=== PATIENT | female | born 1965 | race Caucasian/White ===

== ENCOUNTER 2016-08-17 19:43 | Emergency (ER) | payer OTHER, BC ==
[2016-08-17 19:59] VITALS: BP 133/86; PULSE 75; RESP 16; TEMP 97.9
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
== END 2016-08-17 20:45 | disposition home or self-care (01) ==
LOC: EC 19:43
DX: Z04.1 Encounter for examination and observation following transport accident (principal); Z79.84 Long term (current) use of oral hypoglycemic drugs; Z79.899 Other long term (current) drug therapy; Z88.0 Allergy status to penicillin; Z88.8 Allergy status to other drugs, medicaments and biological substances; V87.7XXA Person injured in collision between other specified motor vehicles (traffic), initial encounter; Y92.69 Other specified industrial and construction area as the place of occurrence of the external cause; Y99.0 Civilian activity done for income or pay
CPT/HCPCS: 99283

== ENCOUNTER 2016-10-23 01:24 | Emergency (ER) | payer BC ==
[2016-10-23] MEDS ORDERED: ENALAPRILAT 1.25 MG/ML 1 ML VIAL IVP STA (01:42)
--- NOTE | 2016-10-23 01:46 | ED ---
General Adult HPI - General Chief complaint: Recheck/Abnormal Lab/Rx Stated complaint: HIGH BP Time Seen by Provider: 10/23/16 01:34 Source: patient Mode of arrival: wheelchair Limitations: no limitations - History of Present Illness Initial comments: 51-year-old woman who presents to be evaluated because her blood pressure has been high most of the day. The patient states that she had initially noticed things in the morning, starting with a feeling that she was flushed. She states that she checked her blood pressure and it was over 170. When this continued throughout the day she decided to be evaluated here. She has been feeling warm, flushed. Patient denies chest pain, headache, dyspnea, nausea vomiting, or diaphoresis. Onset/Timin -: days(s) Improves with: none Worsens with: none Associated Symptoms: denies other symptoms Treatments Prior to Arrival: none - Related Data Home Medications Medication Instructions Recorded Confirmed Chlorthalidone(Unknown) 1 tab PO DAILY 08/17/16 08/17/16 Lisinopril(Unknown) 1 tab PO HS 08/17/16 08/17/16 metFORMIN HCL [Metformin HCl] 500 mg PO BID 08/17/16 08/17/16 Allergies Allergy/AdvReac Type Severity Reaction Status Date / Time niacin Allergy Rash/Hives Verified 10/23/16 01:30 Penicillins Allergy Rash/Hives Verified 10/23/16 01:30 Review of Systems ROS Statement: Those systems with pertinent positive or pertinent negative responses have been documented in the HPI. ROS Other: All systems not noted in ROS Statement are negative. Constitutional: Denies: fever, chills Eyes: Denies: vision change Respiratory: Denies: cough, dyspnea Cardiovascular: Reports: palpitations. Denies: chest pain, orthopnea, syncope Gastrointestinal: Denies: abdominal pain, vomiting, diarrhea Genitourinary: Denies: dysuria, hematuria Skin: Denies: rash Neurological: Denies: headache, weakness, numbness Psychiatric: Reports: anxiety Past Medical History Past Medical History: No Reported History History of Any Multi-Drug Resistant Organisms: None Reported Past Surgical History: Section Past Psychological History: No Psychological Hx Reported Smoking Status: Never smoker Past Alcohol Use History: None Reported Past Drug Use History: None Reported General Exam Limitations: no limitations General appearance: alert, in no apparent distress, anxious Head exam: Present: atraumatic, normocephalic Eye exam: Present: normal appearance. Absent: scleral icterus, conjunctival injection ENT exam: Present: normal oropharynx Neck exam: Present: normal inspection Respiratory exam: Present: normal lung sounds bilaterally. Absent: respiratory distress, wheezes, rales, rhonchi, stridor Cardiovascular Exam: Present: regular rate, normal rhythm, normal heart sounds. Absent: systolic murmur, diastolic murmur, rubs, gallop GI/Abdominal exam: Present: soft. Absent: distended, tenderness, guarding, rebound Extremities exam: Present: normal inspection, normal capillary refill. Absent: pedal edema, calf tenderness Back exam: Present: normal inspection. Absent: CVA tenderness (R), CVA tenderness (L) Neurological exam: Present: alert Skin exam: Present: warm, dry, intact, normal color. Absent: rash Course Vital Signs 10/23/16 10/23/16 10/23/16 01:27 01:53 02:38 Temperature 97.6 F Pulse Rate 76 68 75 Respiratory 20 16 Rate Blood Pressure 200/115 172/96 132/82 O2 Sat by Pulse 95 97 98 Oximetry 10/23/16 02:54 Temperature Pulse Rate 75 Respiratory Rate Blood Pressure 129/80 O2 Sat by Pulse 95 Oximetry EKG Findings - EKG Results: EKG: interpreted by ABILIO SANTIAGO, sinus rhythm (Rate approximately 67 bpm), normal axis, normal QRS, normal ST/T, no acute changes - GA, Pacemaker, Normal: Normal tracing: normal tracing Medical Decision Making - Lab Data Result diagrams: 10/23/16 02:03 10/23/16 02:03 Lab Results 10/23/16 10/23/16 10/23/16 Range/Units 02:03 02:03 02:57 WBC 6.7 (3.8-10.6) k/uL RBC 4.84 (3.80-5.40) m/uL Hgb 14.5 (11.4-16.0) gm/dL Hct 41.6 (34.0-46.0) % MCV 85.9 (80.0-100.0) fL MCH 29.9 (25.0-35.0) pg MCHC 34.8 (31.0-37.0) g/dL RDW 13.1 (11.5-15.5) % Plt Count 229 (150-450) k/uL Neutrophils % 55 % Lymphocytes % 34 % Monocytes % 6 % Eosinophils % 3 % Basophils % 0 % Neutrophils # 3.7 (1.3-7.7) k/uL Lymphocytes # 2.3 (1.0-4.8) k/uL Monocytes # 0.4 (0-1.0) k/uL Eosinophils # 0.2 (0-0.7) k/uL Basophils # 0.0 (0-0.2) k/uL Sodium 136 L (137-145) mmol/L Potassium 3.8 (3.5-5.1) mmol/L Chloride 102 (98-107) mmol/L Carbon Dioxide 23 (22-30) mmol/L Anion Gap 11 mmol/L BUN 15 (7-17) mg/dL Creatinine 0.60 (0.52-1.04) mg/dL Est GFR (MDRD) Af Amer >60 (>60 ml/min/1.73 sqM) Est GFR (MDRD) Non-Af >60 (>60 ml/min/1.73 sqM) Glucose 329 H (74-99) mg/dL POC Glucose (mg/dL) 288 H (75-99) mg/dL POC Glu [employer] Merchandiser ID Jennifer Stark Calcium 9.8 (8.4-10.2) mg/dL Disposition Clinical Impression: Hypertension, Hyperglycemia Disposition: HOME SELF-CARE Condition: Good Instructions: Hypertension (ED), Diabetic Hyperglycemia (ED) Referrals: Henok Brock MD [Primary Care Provider] - 1-2 days
[2016-10-23 01:54] VITALS: RESP 16
[2016-10-23 02:22] LABS: Basophils % (A) 0 %; CH 29.7; CHCM 34.8; Eosinophils # (A) 0.2 k/uL (0-0.7); Eosinophils % (A) 3 %; HCT 41.6 % (34.0-46.0); HDW 2.65; HGB 14.5 gm/dL (11.4-16.0); Luc # (Auto) 0.16; Luc % (Auto) 2; Lymphocytes # (A) 2.3 k/uL (1.0-4.8); Lymphocytes % (A) 34 %; MCH 29.9 pg (25.0-35.0); MCHC 34.8 g/dL (31.0-37.0); MCV 85.9 fL (80.0-100.0); Monocytes # (A) 0.4 k/uL (0-1.0); Monocytes % (A) 6 %; Neutrophils # (A) 3.7 k/uL (1.3-7.7); Neutrophils % (A) 55 %; RBC 4.84 m/uL (3.80-5.40); RDW 13.1 % (11.5-15.5); WBC 6.7 k/uL (3.8-10.6); WBC (Perox) 6.53
[2016-10-23 02:28] LABS: Anion Gap 11 mmol/L; Blood Urea Nitrogen 15 mg/dL (7-17); Calcium 9.8 mg/dL (8.4-10.2); Carbon Dioxide 23 mmol/L (22-30); Chloride 102 mmol/L (98-107); Glucose 329 mg/dL (74-99); Non-African American GFR(MDRD) >60 (>60 ml/min/1.73 sqM); Potassium 3.8 mmol/L (3.5-5.1); Sodium 136 mmol/L (137-145)
[2016-10-23] MEDS ORDERED: INSULIN REGULAR 100 UNIT/ML VIAL SQ STA (02:45)
[2016-10-23 02:58] LABS: Glucose,Whole Blood 288 mg/dL (75-99)
[2016-10-23 03:34] LABS: Glucose,Whole Blood 281 mg/dL (75-99)
[2016-10-23 03:42] VITALS: BP 139/82; PULSE 69; TEMP 97.2
== END 2016-10-23 03:42 | disposition home or self-care (01) ==
LOC: EC 01:24
DX: I10 Essential (primary) hypertension (principal); E11.65 Type 2 diabetes mellitus with hyperglycemia; Z79.84 Long term (current) use of oral hypoglycemic drugs; Z79.899 Other long term (current) drug therapy
CPT/HCPCS: 36415; 80048; 84484; 85025; 93005; 96374; 99284

== ENCOUNTER → 2017-07-19 | Outpatient (CLI) | payer BC ==
--- NOTE | 2017-07-21 08:41 | MR ---
EXAMINATION TYPE: MR brain wo con DATE OF EXAM: 07/19/2017 COMPARISON: CT brain dated 08/20/2011 HISTORY: Headache, family hx of aneurysm TECHNIQUE: Multiplanar, multisequence images of the brain and brainstem is performed without IV contrast. FINDINGS: Diffusion weighted images demonstrate no evidence of a recent infarct or other diffusion ab normality. There is no extra-axial fluid collection or significant white matter signal abnormality. The ventricular system and cisternal spaces are normal in size and appearance. The brain volume is age appropriate. Midline structures demonstrate normal morphology. The craniocervical junction appears within normal limits. Post contrast images demonstrate no abnormal enhancement. The dural venous sinuses appear pa tent. Mild mucosal thickening is seen within the ethmoid sinuses. The remaining visualized sinuses ar e clear and the globes are intact. IMPRESSION: 1. No evidence of acute infarct, midline shift or mass effect. Intracranial flow voids are maintained with no gross evidence of aneurysm, however aneurysm is better assessed for with MRA. This could be performed if there is further clinical concern. 2. Minimal ethmoidal paranasal sinus disease.
== END | disposition home or self-care (01) ==
LOC: RADMRIMAIN 08:26
PROVIDERS: ATTEND Internal Medicine
DX: R51 Headache (principal); I10 Essential (primary) hypertension; Z82.49 Family history of ischemic heart disease and other diseases of the circulatory system
CPT/HCPCS: 70551

== ENCOUNTER → 2018-03-18 | Outpatient (CLI) | payer BC ==
--- NOTE | 2018-03-18 14:57 | P.SLEEP ---
History of Present Illness H&P Date: 03/18/18 This is a 52-year-old female patient is coming in for a sleep apnea evaluation. The patient was here approximately 2 years ago and she was unable to get an authorization to undergo a polysomnogram and she was lost to follow-up. In the meantime, the patient continued to snore loudly and she has been told by several family members that she would quit breathing at night and she would have prolonged apneas. The patient herself is very much tired and sleepy and she carries an Independence score of 22. The patient is going to bed around midnight and she gets out of bed at 7:30 and she thinks that she may be is taken only 2 or 3 hours of good uninterrupted sleep. She has excessive fatigue and sleepiness during the day. She wakes up with dry mouth. She has trouble with attention, and she falls asleep on and off during the day. She wakes up very tired in the morning. She was obese and she was able to lose some weight with a use of Victoza. She has fibromyalgia and rheumatoid arthritis and she is on Enbrel injections under the care of rheumatology, Dr. Acuna. No sleep paralysis. No hallucinations. No cataplexy. No restlessness and lower extremities. Occasional morning headaches have been reported by this patient. She does have a positive family history of obstructive sleep apnea. No motor vehicle accidents related to excessive sleepiness. She does not fall asleep while driving. No restlessness in the lower extremities bilaterally. Review of Systems Constitutional: Reports daytime sleepiness, Reports fatigue, Reports lethargy Eyes: denies as per HPI, denies blurred vision, denies bulging eye, denies decreased vision, denies diplopia, denies discharge, denies dry eye, denies irritation, denies itching, denies pain, denies photophobia, denies loss of peripheral vision, denies loss of vision, denies tunnel vision/blind spots Ears: deny: decreased hearing, ear discharge, earache, tinnitus Ears, nose, mouth and throat: Reports as per HPI (Loud snoring) Breasts: absent: as per HPI, change in shape, gynecomastia, masses, nipple discharge, pain, skin changes, swelling Cardiovascular: Denies chest pain, Denies shortness of breath Respiratory: Reports as per HPI Gastrointestinal: Denies abdominal pain, Denies diarrhea, Denies nausea, Denies vomiting Genitourinary: Denies dysuria, Denies hematuria Menstruation: Reports as per HPI Musculoskeletal: Reports morning stiffness, Reports muscle weakness, Reports myalgias Musculoskeletal: absent: ankle pain, ankle stiffness, ankle swelling, as per HPI , elbow pain, elbow stiffness, elbow swelling, foot pain, foot stiffness, foot swelling, hand pain, hand stiffness, hand swelling, hip pain, hip stiffness, hip swelling, knee pain, knee stiffness, knee swelling, shoulder pain, shoulder stiffness, shoulder swelling, wrist pain, wrist stiffness, wrist swelling Integumentary: Denies pruritus, Denies rash Neurological: Reports weakness Psychiatric: Reports sleep disturbances Endocrine: Reports as per HPI, Reports fatigue Hematologic/Lymphatic: Reports as per HPI Past Medical History Past Medical History: No Reported History Additional Past Medical History / Comment(s): Fibromyalgia, rheumatoid arthritis , hypertension, diabetes mellitus, hyperlipidemia History of Any Multi-Drug Resistant Organisms: None Reported Past Surgical History: Section Past Psychological History: No Psychological Hx Reported Smoking Status: Never smoker Past Alcohol Use History: None Reported Past Drug Use History: None Reported Medications and Allergies Home Medications and Allergies Comment(s): The patient also is on metformin 500 mg by mouth twice a day, Lipitor 20 mg by mouth daily, Lasix 20 mg by mouth daily, Victoza injection a day, vitamin D and Enbrel injections every week, and chlorthalidone. Home Medications Medication Instructions Recorded Confirmed Type Chlorthalidone(Unknown) 1 tab PO DAILY 08/17/16 08/17/16 History Lisinopril(Unknown) 1 tab PO HS 08/17/16 08/17/16 History metFORMIN HCL [Metformin HCl] 500 mg PO BID 08/17/16 08/17/16 History Allergies Allergy/AdvReac Type Severity Reaction Status Date / Time niacin Allergy Rash/Hives Verified 10/23/16 01:30 Penicillins Allergy Rash/Hives Verified 10/23/16 01:30 Physical Exam The patient appeared well nourished and normally developed. Vital signs as documented. Head exam is unremarkable. No scleral icterus or corneal arcus noted. Neck is without jugular venous distension, thyromegaly, or carotid bruits. The patient has a Mallampati class IV Carotid upstrokes are brisk bilaterally. Lungs are clear to auscultation and percussion. Cardiac exam reveals the PMI to be normally sized and situated. Rhythm is regular. First and second heart sounds normal. No murmurs, rubs or gallops. Abdominal exam reveals normal bowel sounds, no masses, no organomegaly and no aortic enlargement. Extremities are nonedematous and both femoral and pedal pulses are normal.Examination of the skin revealed no evidence of significant rashes, suspicious appearing nevi or other concerning lesions. Neurologically awake and alert and there is no focal neurological deficit Assessment and Plan Assessment: Assessment 1 obstructive sleep apnea. The patient has a strong clinical suspicion for obstructive sleep apnea based on her reported history of snoring and witnessed apneas and excessive daytime sleepiness. This needs to be further investigated 2 hypersomnia, with an Independence score of 22 3 sleep fragmentation frequent nocturnal arousals, multifactorial, rule out secondary to obstructive sleep apnea 4 fibromyalgia 5 rheumatoid arthritis 6 diabetes mellitus2 7 hypertension 8 hyperlipidemia Plan The patient is quite symptomatic. Ideally I would like to get a polysomnogram to assess her sleep architecture and characteristics in addition to other issues that could affect the patient's sleep quality. The main concern however is still obstructive sleep apnea. The patient has not been approved for a PSG in the past. We'll order a home sleep study looking for any sleep breathing disorder. Based on the results we'll make further recommendations. May ultimately need CPAP treatment regarding obstructive sleep apnea specially if this is confirmed. The patient was asked to implement good sleep hygiene measures. We'll continue to follow. Sleep Note - Sleep Note Sleep Note: Temperature: 97 0 Pulse Rate: 89 Respiratory Rate: 16 Blood Pressure: 124/86 SpO2: 95% on room air Height: 5 3 Weight: 198 BMI: 34.8 Neck Circumference: 14 Independence score of 22
== END | disposition home or self-care (01) ==
LOC: SLEEP 13:46
PROVIDERS: ATTEND Internal Medicine Critical Care Medicine
DX: G47.10 Hypersomnia, unspecified (principal); R06.83 Snoring; R53.83 Other fatigue; E66.9 Obesity, unspecified; M79.7 Fibromyalgia; M06.9 Rheumatoid arthritis, unspecified; G47.51 Confusional arousals; E11.9 Type 2 diabetes mellitus without complications; I10 Essential (primary) hypertension; E78.5 Hyperlipidemia, unspecified; Z68.34 Body mass index [BMI] 34.0-34.9, adult; Z79.84 Long term (current) use of oral hypoglycemic drugs; Z88.8 Allergy status to other drugs, medicaments and biological substances; Z88.0 Allergy status to penicillin; Z79.899 Other long term (current) drug therapy; Z98.890 Other specified postprocedural states
CPT/HCPCS: 99211

== ENCOUNTER → 2021-07-13 | Outpatient (CLI) | payer BC ==
--- NOTE | 2021-07-13 18:02 | CONS ---
CONSULTATION DATE OF SERVICE: 07/13/2021 This 56-year-old lady has been evaluated in [facility] for obstructive sleep apnea- hypopnea syndrome. HISTORY OF PRESENT ILLNESS/SLEEP-WAKE EVALUATION: Patient has a history of obstructive sleep apnea diagnosed in 2019. At that time apnea- hypopnea index was 12. The patient was recommended to start treatment with CPAP, but for different reasons treatment was not initiated. At present, her sleep schedule is from 12:30 a.m. until 7 a.m. on weekdays and 11 to 7 on weekends. She does have problems with falling asleep, although no TV in bedroom. She sleeps in different positions, constantly moving during sleep, feeling numbness in her hands. She wakes up more than 6 times at night with up to 4 episodes of nocturia. She snores, has episodes of stopped breathing during sleep, grinding her teeth. In the morning the patient wakes up tired, has difficulties paying attention, falling asleep during the day, has problems with memory, concentration and anxiety. [place] Sleepiness Scale today is in extremely high range at 20. No history of hypnagogic hallucinations, sleep paralysis or cataplexy. PAST MEDICAL HISTORY: Positive for hypertension, diabetes mellitus, fibromyalgia, episodes of palpitations, headaches. PAST SURGICAL HISTORY: Cholecystectomy, C-sections x4. MEDICATIONS: 1. Metformin 500 mg twice a day. 2. Furosemide 20 mg once a day. 3. Fenofibrate 48 mg once a day. 4. Atenolol 25 mg once a day. 5. once a day. SOCIAL HISTORY: Negative for smoking. Alcohol consumption occasional. FAMILY HISTORY: Hypertension, stroke, brain aneurysm, snoring, diabetes, mental illness. REVIEW OF SYSTEMS: Multiple awakenings from sleep, snoring, sleepiness during the day. No fevers. No double vision. No recent chest pain. No shortness of breath. No abdominal pain. No bleeding episodes. No blood in the urine. No seizure episodes. PHYSICAL EXAMINATION: GENERAL: Pleasant lady without distress. VITAL SIGNS: BP 167/106, HR 62, RR 16, height 5 feet 3 inches, weight 194.8 pounds, body mass index 34.3, temperature 97.3, oxygen saturation at room air 97%. HEENT: PERRLA, EOMI, evaluation of oropharynx showed tongue protrudes midline. Extremely low position of soft palate. NECK: Supple, no JVD. Thyroid is not palpable. Neck measures 14-1/2 inches in circumference. LUNGS: Clear to percussion and to auscultation. Good air exchange. No wheezing or rhonchi. HEART: S1, S2 regular. No murmurs, gallops, or rubs. ABDOMEN: Soft and nontender. Bowel sounds are present. No organomegaly appreciated. EXTREMITIES: No clubbing or cyanosis. IMPLEMENTATION DIRECTOR: Awake, alert, and oriented X3. Cranial nerves 2 to 7 intact. There is no fasciculation or atrophy. noted. No focal deficits observed. IMPRESSION: 1. Snoring, multiple awakenings from sleep, witnessed episodes of stopped breathing during sleep, sleepiness, extremely low position of soft palate, Mallampati IV; obstructive sleep apnea-hypopnea syndrome. 2. Extremely high level of sleepiness, dictating necessity to include hypersomnia and narcolepsy in differential diagnosis. 3. Hypertension. 4. Diabetes mellitus. 5. History of fibromyalgia. 6. Status post cholecystectomy. 7. Status post 4 sections. 8. History of palpitations. 9. Headaches. PLAN: 1. Polysomnography for evaluation of patient's breathing during sleep. 2. CPAP/BiPAP titration if sleep study confirms obstructive sleep apnea-hypopnea syndrome. 3. Preferable position during sleep on the side. 4. No driving if patient feels any sleepiness. 5. I will see patient for follow up visit to explain results of testing and following plan. Thank you very much for referring this patient for consultation. Sincerely, Maximo Forde MD, PhD, FAASM Diplomat of [place] [employer] Sleep Medicine Board of [place] [employer] Store Sales[employer] [facility] [place] MMODL / IJN: [id number] /
== END | disposition home or self-care (01) ==
LOC: SLEEP 16:12
PROVIDERS: ATTEND Internal Medicine
DX: G47.33 Obstructive sleep apnea (adult) (pediatric) (principal); I10 Essential (primary) hypertension; E11.9 Type 2 diabetes mellitus without complications; R51.9 Headache, unspecified; Z86.69 Personal history of other diseases of the nervous system and sense organs; Z90.49 Acquired absence of other specified parts of digestive tract; Z86.79 Personal history of other diseases of the circulatory system
CPT/HCPCS: 99211

== ENCOUNTER 2023-01-23 14:47 | Emergency (ER) | payer OTHER, BC ==
--- NOTE | 2023-01-23 15:08 | ED ---
Arrhythmia/Palpitations HPI - General Source: patient, RN notes reviewed Mode of arrival: ambulatory Limitations: no limitations <Gustavo Martínez - Last Filed: 01/23/23 15:07> - History of Present Illness MD Complaint: rapid heart beat -: minutes(s) Context: occurred during rest Associated Symptoms: chest pain <Albert Koehler - Last Filed: 02/06/23 04:10> - General Chief Complaint: Arrhythmia/Palpitations Stated Complaint: Hypertension-[facility] sent Time Seen by Provider: 01/23/23 15:07 - History of Present Illness Initial Comments: 57-year-old female presents emergency Department chief complaint of tachycardia, palpitations, chest discomfort. Patient states that she's had this happen the past she was driving today when symptoms started. She states she got back to her work [employer] in which she states her heart rate was 175. Patient states that she had no official diagnosis when this happened in the past (Gustavo Martínez) - Related Data Home Medications Medication Instructions Recorded Confirmed Albuterol Sulfate [Ventolin HFA] 2 puff INHALATION RT-Q6H PRN 01/23/23 01/23/23 Fenofibrate Nanocrystallized 48 mg PO HS 01/23/23 01/23/23 [Fenofibrate] Furosemide [Lasix] 20 mg PO DAILY 01/23/23 01/23/23 Multivitamins, Thera [Multivitamin 1 tab PO DAILY 01/23/23 01/23/23 (formulary)] atenoloL 25 mg PO DAILY 01/23/23 01/23/23 Allergies Allergy/AdvReac Type Severity Reaction Status Date / Time niacin Allergy Rash/Hives Verified 01/23/23 16:58 Penicillins Allergy Rash/Hives Verified 01/23/23 16:58 Review of Systems ROS Other: All systems not noted in ROS Statement are negative. <Gustavo Martínez - Last Filed: 01/23/23 15:07> ROS Other: All systems not noted in ROS Statement are negative. Constitutional: Denies: fever, chills, weakness Respiratory: Denies: cough, dyspnea Cardiovascular: Reports: chest pain, palpitations. Denies: edema, syncope Gastrointestinal: Denies: abdominal pain, nausea, vomiting Genitourinary: Denies: dysuria, frequency Musculoskeletal: Denies: back pain Skin: Denies: rash Neurological: Denies: headache, weakness Psychiatric: Reports: anxiety <RodoAlbert - Last Filed: 02/06/23 04:10> ROS Statement: Those systems with pertinent positive or pertinent negative responses have been documented in the HPI. Past Medical History Past Medical History: Hyperlipidemia, Hypertension, Pulmonary Embolus (PE), Supraventricular Tachycardia (SVT) Additional Past Medical History / Comment(s): Fibromyalgia, rheumatoid arthri tis, hypertension, diabetes mellitus, hyperlipidemia History of Any Multi-Drug Resistant Organisms: None Reported Past Surgical History: Section Past Psychological History: No Psychological Hx Reported Past Alcohol Use History: None Reported Past Drug Use History: None Reported <Gustavo Martínez - Last Filed: 01/23/23 15:07> General Exam Limitations: no limitations <Gustavo Martínez Last Filed: 01/23/23 15:07> Limitations: no limitations General appearance: alert, in no apparent distress Head exam: Present: atraumatic, normocephalic Eye exam: Present: normal appearance. Absent: scleral icterus, conjunctival injection ENT exam: Present: normal oropharynx Neck exam: Present: normal inspection Respiratory exam: Present: normal lung sounds bilaterally. Absent: respiratory distress, wheezes, rales, rhonchi, stridor, accessory muscle use Cardiovascular Exam: Present: regular rate (Rate 88 at my exam), normal rhythm, normal heart sounds. Absent: systolic murmur, diastolic murmur, rubs, gallop GI/Abdominal exam: Present: soft. Absent: distended, tenderness, guarding, rebound, rigid, mass, pulsatile mass Extremities exam: Present: normal inspection, normal capillary refill. Absent: pedal edema, calf tenderness Back exam: Present: normal inspection. Absent: CVA tenderness (R), CVA tenderness (L) Neurological exam: Present: alert Skin exam: Present: warm, dry, intact, normal color. Absent: rash <RodoAlbert - Last Filed: 02/06/23 04:10> - General Exam Comments Initial Comments: Visual Physical Exam Vital signs reviewed General: Well-appearing, nontoxic, no acute distress. Head: Normocephalic, atraumatic Eyes: PERRLA, EOMI ENT: Airway patent Chest: Nonlabored breathing Skin: No visual rash, normal skin tone Neuro: Alert and oriented 3 Musculoskeletal: No gross abnormalities (Gustavo Martínez) Course Vital Signs 01/23/23 01/23/23 01/23/23 15:03 15:32 16:05 Temperature 98.3 F 97.8 F Pulse Rate 104 H 89 79 Respiratory 20 20 18 Rate Blood Pressure 193/116 177/118 185/115 O2 Sat by Pulse 99 96 98 Oximetry 01/23/23 01/23/23 01/23/23 17:04 18:07 18:25 Temperature Pulse Rate 75 71 67 Respiratory 18 18 18 Rate Blood Pressure 193/111 197/120 185/115 O2 Sat by Pulse 99 100 99 Oximetry 01/23/23 19:08 Temperature Pulse Rate 67 Respiratory 18 Rate Blood Pressure 149/102 O2 Sat by Pulse 97 Oximetry EKG Findings - EKG Comments: EKG Findings:: Possible old septal infarct. - EKG Results: EKG: sinus rhythm (Rate 87 bpm) - Dysrhythmias: Sinus rhythms and dysrhythmias: sinus rhythm (87 bpm) - Blocks, Morgan, Hypertrophy, ST Abn: AV and intraventricular conduction: left anterior fascicular block <Albert Koehler - Last Filed: 02/06/23 04:10> Medical Decision Making <Gustavo Martínez - Last Filed: 01/23/23 15:07> - Lab Data Result diagrams: 01/23/23 15:28 01/23/23 15:28 <Albert Koehler - Last Filed: 02/06/23 04:10> - Medical Decision Making I completed the quick note portion of this chart signed Gustavo Martínez PA-C (Gustavo Martínez) The patient had chest x-ray which I interpreted as negative for acute infiltrate, pneumothorax, congestive heart failure Was pt. sent in by a medical professional or institution (Dr. PA, MANAGER RETENTION, urgent care, hospital, or [facility]...) When possible be specific @ -[No] Did you speak to anyone other than the patient for history (EMS, parent, family, police, friend...)? What history was obtained from this source @ -[No] Did you review nursing and triage notes (agree or disagree)? Why? @ -[I reviewed and agree with nursing and triage notes] Were old charts reviewed (outside hosp., previous admission, EMS record, old EKG, old radiological studies, urgent care reports/EKG's, [facility] records)? Report findings @ -[No old charts were reviewed] Differential Diagnosis (chest pain, altered mental status, abdominal pain women, abdominal pain men, vaginal bleeding, weakness, fever, dyspnea, syncope, headache, dizziness, GI bleed, back pain, seizure, CVA, palpatations, mental health, musculoskeletal)? @ -[Differential Palpitations Ventricular arrhythmias, atrial arrhythmias, myocardial infarction, anemia, thyrotoxicosis, electrolyte imbalance, hypokalemia, pulmonary embolism, pulmonary disease, drugs, alcohol, anxiety, stress.... This is not meant to be an all-inclusive list. EKG interpreted by me (3pts min.). @ -[As above] X-rays interpreted by me (1pt min.). @ -[Interpreted as above CT interpreted by me (1pt min.). @ -[None done] U/S interpreted by me (1pt. min.). @ -[None done] What testing was considered but not performed or refused? (CT, X-rays, U/S, labs)? Why? @ -[None] What meds were considered but not given or refused? Why? @ -[None] Did you discuss the management of the patient with other professionals (professionals i.e. , PA, MANAGER [employer]ENTION, lab, RT, psych nurse, social service liaison, lockstitch coat joiner, teacher, hospital security officer, pillowcase cleaner)? Give summary @ -[No] Was smoking cessation discussed for >3mins.? @ -[No] Was critical care preformed (if so, how long)? @ -[No] Were there social determinants of health that impacted care today? How? (Homelessness, low income, unemployed, alcoholism, drug addiction, transportation, low edu. Level, literacy, decrease access to med. care, skilled nursing, rehab)? @ -[No] Was there de-escalation of care discussed even if they declined (Discuss DNR or withdrawal of care, Hospice)? DNR status @ -[No] What co-morbidities impacted this encounter? (DM, HTN, Smoking, COPD, CAD, Cancer, CVA, ARF, Chemo, Hep., AIDS, mental health diagnosis, sleep apnea, morbid obesity)? @ -[None] Was patient admitted / discharged? Hospital course, mention meds given and route, prescriptions, significant lab abnormalities, going to OR and other pertinent info. @ -[Discharged. The patient workup here unremarkable, she will follow with cardiology to have probable Holter monitoring. We discussed appropriate further care and follow-up as well as return parameters. Undiagnosed new problem with uncertain prognosis? @ -[No] Drug Therapy requiring intensive monitoring for toxicity (Heparin, Nitro, Insulin, Cardizem)? @ -[No] Were any procedures done? @ -[No] Diagnosis/symptom? @ -[Acute tachycardia, suspect SVT Acute, or Chronic, or Acute on Chronic? @ -[Acute Uncomplicated (without systemic symptoms) or Complicated (systemic symptoms)? @ -[Uncomplicated Side effects of treatment? @ -[No] Exacerbation, Progression, or Severe Exacerbation? @ -[No] Poses a threat to life or bodily function? How? (Chest pain, [place], [place], pneumonia, PE, COPD, DKA, ARF, appy, cholecystitis, CVA, Diverticulitis, Homicidal, Suicidal, threat to staff... and all critical care pts) @ -[No] (Albert Koehler) - Lab Data Lab Results 01/23/23 01/23/23 01/23/23 Range/Units 15:28 15:28 15:28 WBC 7.0 (3.8-10.6) k/uL RBC 5.11 (3.80-5.40) m/uL Hgb 15.2 (11.4-16.0) gm/dL Hct 44.6 (34.0-46.0) % MCV 87.3 (80.0-100.0) fL MCH 29.8 (25.0-35.0) pg MCHC 34.1 (31.0-37.0) g/dL RDW 12.9 (11.5-15.5) % Plt Count 240 (150-450) k/uL MPV 9.0 Neutrophils % 57 % Lymphocytes % 34 % Monocytes % 4 % Eosinophils % 3 % Basophils % 0 % Neutrophils # 4.0 (1.3-7.7) k/uL Lymphocytes # 2.4 (1.0-4.8) k/uL Monocytes # 0.3 (0-1.0) k/uL Eosinophils # 0.2 (0-0.7) k/uL Basophils # 0.0 (0-0.2) k/uL PT 10.4 (10.0-12.5) sec INR 0.9 (<1.2) APTT 22.4 (22.0-30.0) sec Sodium 144 (137-145) mmol/L Potassium 3.6 (3.5-5.1) mmol/L Chloride 110 H (98-107) mmol/L Carbon Dioxide 22 (22-30) mmol/L Anion Gap 12 mmol/L BUN 18 H (7-17) mg/dL Creatinine 0.61 (0.52-1.04) mg/dL Est GFR (CKD-EPI)AfAm >90 (>60 ml/min/1.73 sqM) Est GFR (CKD-EPI)NonAf >90 (>60 ml/min/1.73 sqM) Glucose 148 H (74-99) mg/dL Calcium 10.3 H (8.4-10.2) mg/dL Magnesium 2.2 (1.6-2.3) mg/dL Total Bilirubin 0.8 (0.2-1.3) mg/dL AST 63 H (14-36) U/L ALT 62 H (4-34) U/L Alkaline Phosphatase 146 H (38-126) U/L Troponin I (0.000-0.034) ng/mL Total Protein 7.8 (6.3-8.2) g/dL Albumin 4.4 (3.5-5.0) g/dL Urine Color Urine Appearance (Clear) Urine pH (5.0-8.0) Ur Specific [place] (1.001-1.035) Urine Protein (Negative) Urine Glucose (UA) (Negative) Urine Ketones (Negative) Urine Blood (Negative) Urine Nitrite (Negative) Urine Bilirubin (Negative) Urine Urobilinogen (<2.0) mg/dL Ur Leukocyte Esterase (Negative) Urine RBC (0-5) /hpf Urine WBC (0-5) /hpf Ur Squamous Epith Cells (0-4) /hpf Urine Bacteria (None) /hpf Urine Mucus (None) /hpf 01/23/23 01/23/23 Range/Units 15:28 17:50 WBC (3.8-10.6) k/uL RBC (3.80-5.40) m/uL Hgb (11.4-16.0) gm/dL Hct (34.0-46.0) % MCV (80.0-100.0) fL MCH (25.0-35.0) pg MCHC (31.0-37.0) g/dL RDW (11.5-15.5) % Plt Count (150-450) k/uL MPV Neutrophils % % Lymphocytes % % Monocytes % % Eosinophils % % Basophils % % Neutrophils # (1.3-7.7) k/uL Lymphocytes # (1.0-4.8) k/uL Monocytes # (0-1.0) k/uL Eosinophils # (0-0.7) k/uL Basophils # (0-0.2) k/uL PT (10.0-12.5) sec INR (<1.2) APTT (22.0-30.0) sec Sodium (137-145) mmol/L Potassium (3.5-5.1) mmol/L Chloride (98-107) mmol/L Carbon Dioxide (22-30) mmol/L Anion Gap mmol/L BUN (7-17) mg/dL Creatinine (0.52-1.04) mg/dL Est GFR (CKD-EPI)AfAm (>60 ml/min/1.73 sqM) Est GFR (CKD-EPI)NonAf (>60 ml/min/1.73 sqM) Glucose (74-99) mg/dL Calcium (8.4-10.2) mg/dL Magnesium (1.6-2.3) mg/dL Total Bilirubin (0.2-1.3) mg/dL AST (14-36) U/L ALT (4-34) U/L Alkaline Phosphatase (38-126) U/L Troponin I <0.012 (0.000-0.034) ng/mL Total Protein (6.3-8.2) g/dL Albumin (3.5-5.0) g/dL Urine Color Colorless Urine Appearance Clear (Clear) Urine pH 7.0 (5.0-8.0) Ur Specific [place] 1.007 (1.001-1.035) Urine Protein Negative (Negative) Urine Glucose (UA) Negative (Negative) Urine Ketones Negative (Negative) Urine Blood Negative (Negative) Urine Nitrite Negative (Negative) Urine Bilirubin Negative (Negative) Urine Urobilinogen <2.0 (<2.0) mg/dL Ur Leukocyte Esterase Large H (Negative) Urine RBC 1 (0-5) /hpf Urine WBC 1 (0-5) /hpf Ur Squamous Epith Cells 2 (0-4) /hpf Urine Bacteria Rare H (None) /hpf Urine Mucus Rare H (None) /hpf Disposition <Gustavo Martínez - Last Filed: 01/23/23 15:07> Is patient prescribed a controlled substance at d/c from ED?: No <Albert Koehler - Last Filed: 02/06/23 04:10> Clinical Impression: Palpitations Disposition: HOME SELF-CARE Condition: Good Instructions (If sedation given, give patient instructions): Heart Palpitations (ED) Additional Instructions: As discussed, your transaminase levels are elevated, these should be rechecked in 5-7 days. With strong family history, we recommend having MRI/MRA for possibility of aneurysm. Referrals: Delia Dickerson MD [Primary Care Provider] - 1-2 days Tobi Garza MD [STAFF PHYSICIAN] - 1-2 days
--- NOTE | 2023-01-23 15:47 | XR ---
EXAMINATION TYPE: XR chest 2V DATE OF EXAM: 01/23/2023 COMPARISON: 08/20/2011 TECHNIQUE: PA and lateral views submitted. HISTORY: Pain FINDINGS: The lungs are clear and there is no pneumothorax, pleural effusion, or focal pneumonia. Heart size normal and no overt failure. Osseous structures demonstrate hypertrophic and degenerative changes of the spine. IMPRESSION: 1. No acute process.
[2023-01-23 15:48] LABS: Basophils % (A) 0 %; Eosinophils # (A) 0.2 k/uL (0-0.7); Eosinophils % (A) 3 %; HCT 44.6 % (34.0-46.0); HGB 15.2 gm/dL (11.4-16.0); Lymphocytes # (A) 2.4 k/uL (1.0-4.8); Lymphocytes % (A) 34 %; MCH 29.8 pg (25.0-35.0); MCHC 34.1 g/dL (31.0-37.0); MCV 87.3 fL (80.0-100.0); Monocytes # (A) 0.3 k/uL (0-1.0); Monocytes % (A) 4 %; Neutrophils % (A) 57 %; Platelet Count 240 k/uL (150-450); RBC 5.11 m/uL (3.80-5.40); RDW 12.9 % (11.5-15.5)
[2023-01-23 15:57] LABS: ALT 62 U/L (4-34); AST 63 U/L (14-36); African American GFR (CKD) >90 (>60 ml/min/1.73 sqM); Albumin 4.4 g/dL (3.5-5.0); Alkaline Phosphatase 146 U/L (38-126); Anion Gap 12 mmol/L; Blood Urea Nitrogen 18 mg/dL (7-17); Calcium 10.3 mg/dL (8.4-10.2); Carbon Dioxide 22 mmol/L (22-30); Chloride 110 mmol/L (98-107); Glucose 148 mg/dL (74-99); Magnesium 2.2 mg/dL (1.6-2.3); Non-African American GFR(CKD) >90 (>60 ml/min/1.73 sqM); Potassium 3.6 mmol/L (3.5-5.1); Sodium 144 mmol/L (137-145); Total Bilirubin 0.8 mg/dL (0.2-1.3); Total Protein 7.8 g/dL (6.3-8.2)
[2023-01-23 16:12] LABS: INR 0.9 (<1.2); Partial Thromboplastin Time 22.4 sec (22.0-30.0); Prothrombin Time 10.4 sec (10.0-12.5)
[2023-01-23 16:15] VITALS: RESP 18; TEMP 97.8
[2023-01-23] MEDS ORDERED: LABETALOL 5 MG/ML VIAL MDV IVP STA ×2 (17:51→17:52)
[2023-01-23 18:07] LABS: Appearance,Urine Clear (Clear); Bacteria,Urine Rare /hpf; Bilirubin,Urine Negative (Negative); Blood,Urine Negative (Negative); Color,Urine Colorless; Glucose,Urine (UA) Negative (Negative); Ketones,Urine Negative (Negative); Leukocyte Esterase,Urine Large (Negative); Mucus,Urine Rare /hpf; Nitrite,Urine Negative (Negative); Protein,Urine Negative (Negative); RBC,Urine 1 /hpf (0-5); Specific Gravity,Urine 1.007 (1.001-1.035); Squamous Epithelial Cell,Urine 2 /hpf (0-4); Urobilinogen,Urine <2.0 mg/dL (<2.0); WBC,Urine 1 /hpf (0-5)
[2023-01-23 18:31] VITALS: PULSE 67
[2023-01-23 19:24] VITALS: BP 149/102
== END 2023-01-23 19:19 | disposition home or self-care (01) ==
LOC: EC 14:47
DX: I44.4 Left anterior fascicular block (principal); I25.2 Old myocardial infarction; I10 Essential (primary) hypertension; Z88.8 Allergy status to other drugs, medicaments and biological substances; Z79.899 Other long term (current) drug therapy; Z88.0 Allergy status to penicillin
CPT/HCPCS: 36415; 93005; 80053; 83735; 84484; 85025; 85610; 85730; 81001; 71046; 99285; 96374; J1920

== ENCOUNTER → 2023-03-21 | Outpatient (CLI) | payer OTHER ==
--- NOTE | 2023-03-21 11:37 | CT ---
EXAMINATION TYPE: CT cervical spine wo con DATE OF EXAM: 03/21/2023 COMPARISON: None HISTORY: sprained ligaments of cervical spine CT DLP: 379.6 mGycm CONTRAST: None CT of the cervical spine is performed in the axial plane at 2 mm thick sections. Reconstructed image s in the coronal, and sagittal plane are reviewed on the computer. No acute fractures are evident. Vertebral body alignment is normal. Disc heights are preserved. Vertebral body heights are preserved. No spinal canal stenosis is evident No neural foraminal stenosis is evident. Prevertebral space is normal. Posterior spinal lamellar line is intact. IMPRESSION: 1. No suspicious acute osseous abnormality radiographically apparent. 2. If closer evaluation of ligaments would be of benefit, consider MRI.
--- NOTE | 2023-03-21 12:55 | XR ---
EXAMINATION TYPE: XR elbow complete LT DATE OF EXAM: 03/21/2023 11:45 AM CLINICAL INDICATION:Female, 57 years old with history of S13.4XXA S23.3XXASPRAIN OF LIGAMENTS OF THOR ACIC S; [facility] COMPARISON: None TECHNIQUE: XR elbow complete LT; elbow was examined in AP, lateral, and oblique projections. FINDINGS: No evidence of any acute osseous pathology, joint dislocation, or soft tissue swelling is n oted. Anterior fat pad appears elevated. IMPRESSION: No evidence of fracture. There is a small joint effusion. If pain persists consider MRI elbow.
--- NOTE | 2023-03-21 13:00 | XR ---
EXAMINATION TYPE: XR thoracic spine 2V, XR lumbar spine 2 or 3V DATE OF EXAM: 03/21/2023 11:45 AM CLINICAL INDICATION:Female, 57 years old with history of S13.4XXA S23.3XX A SPRAIN OF LIGAMENTS OF TH ORACIC S; [facility] COMPARISON: None TECHNIQUE: XR thoracic spine 2V, XR lumbar spine 2 or 3V views of the spine in Frontal and lateral pr ojections. FINDINGS: No evidence of acute fracture. There is scattered multilevel disk space narrowing without loss of ve rtebral body height. There is normal alignment of the thoracic vertebral bodies. Scattered osteophyte formation along the anterior and lateral aspects of the vertebral bodies. Neural foramen are patent given limitations of this exam. Spinal canal appears patent. IMPRESSION: 1. No acute osseous pathology. 2. Mild degeneration changes throughout the spine.
== END | disposition home or self-care (01) ==
LOC: RADCTMAIN 10:56
PROVIDERS: ATTEND Emergency Medicine
DX: M25.422 Effusion, left elbow (principal); M51.37 Other intervertebral disc degeneration, lumbosacral region; S13.4XXA Sprain of ligaments of cervical spine, initial encounter; S23.3XXA Sprain of ligaments of thoracic spine, initial encounter; S39.012A Strain of muscle, fascia and tendon of lower back, initial encounter; S50.02XA Contusion of left elbow, initial encounter; X58.XXXA Exposure to other specified factors, initial encounter
CPT/HCPCS: 72070; 72100; 72125